=== PATIENT | female | born 1955 | race Two or more races ===

== ENCOUNTER 2021-12-21 16:59 | Emergency (ER) | payer OTHER ==
[2021-12-21 17:12] VITALS: TEMP 98.4
--- NOTE | 2021-12-21 18:43 | ED ---
Wound/Laceration HPI - General Chief Complaint: Wound/Laceration Stated Complaint: Leg Pain/Cellulitus Time Seen by Provider: 12/21/21 18:31 Source: patient, RN notes reviewed Mode of arrival: wheelchair - History of Present Illness Initial Comments: This is a pleasant 66-year-old female with history of hypertension, hyperlipidemia and chronic venous insufficiency. She presents today with worsening wound to the medial aspect of her left foot and ankle. She has been seeing wound care and having frequent and consistent dressing changes. However she states that she was sent down here because the balloon seems to be worse. 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 Patient denied any other immunosuppression. Nonsmoker. Patient is complaining of some pain to the area which is increased from usual. Patient states it seems to be worse when she is on her feet. Patient states that wound care told her she should be off of her feet for a few days. No headache, no fever or chills, no changes in vision or hearing, no sore throat or difficulty with speech, no neck pain, no chest pain or shortness of breath, no abdominal pain, no nausea or vomiting, no changes in urination or bowel movements, no numbness or tingling, no skin rashes or lesions. - Related Data Home Medications Medication Instructions Recorded Confirmed Acetaminophen [Tylenol] 1,000 mg PO Q4-6H PRN 12/21/21 12/21/21 Ascorbic Acid [Vitamin C] 500 mg PO DAILY 12/21/21 12/21/21 Atorvastatin [Lipitor] 20 mg PO HS 12/21/21 12/21/21 Cholecalciferol [Vitamin D3 (25 25 mcg PO DAILY 12/21/21 12/21/21 Mcg = 1000 Iu)] Ibuprofen [Motrin Ib] 200 mg PO Q4-6H PRN 12/21/21 12/21/21 Multivit-Min/Iron/Folic/Lutein 1 tab PO DAILY 12/21/21 12/21/21 [Centrum Silver Women Tablet] amLODIPine [Norvasc] 10 mg PO HS 12/21/21 12/21/21 diphenhydrAMINE [Benadryl] 25 mg PO DAILY 12/21/21 12/21/21 diphenhydrAMINE [Benadryl] 50 mg PO HS 12/21/21 12/21/21 lisinopriL 40 mg PO HS 12/21/21 12/21/21 Previous Rx's Medication Instructions Recorded Doxycycline Monohydrate [Monodox] 100 mg PO Q12HR #14 cap 12/21/21 Allergies Allergy/AdvReac Type Severity Reaction Status Date / Time Penicillins Allergy Rash/Hives Verified 12/21/21 19:37 and Swelling all over body Review of Systems ROS Statement: Those systems with pertinent positive or pertinent negative responses have been documented in the HPI. ROS Other: All systems not noted in ROS Statement are negative. Past Medical History Past Medical History: Hyperlipidemia, Hypertension History of Any Multi-Drug Resistant Organisms: None Reported Past Psychological History: No Psychological Hx Reported Smoking Status: Never smoker Past Alcohol Use History: None Reported Past Drug Use History: None Reported General Exam - General Exam Comments Initial Comments: Healthy-appearing 66-year-old female in no significant distress. Does not appear to be ill or toxic. General appearance: alert, in no apparent distress Head exam: Present: atraumatic, normocephalic, normal inspection Eye exam: Present: normal appearance, PERRL, EOMI. Absent: scleral icterus, conjunctival injection, periorbital swelling ENT exam: Present: normal exam, mucous membranes moist. Absent: TM's normal bilaterally Neck exam: Present: normal inspection. Absent: tenderness, meningismus, lymphadenopathy Respiratory exam: Present: normal lung sounds bilaterally. Absent: respiratory distress, wheezes, rales, rhonchi, stridor Cardiovascular Exam: Present: regular rate, normal rhythm, normal heart sounds. Absent: systolic murmur, diastolic murmur, rubs, gallop, clicks GI/Abdominal exam: Present: soft, normal bowel sounds. Absent: distended, tenderness, guarding, rebound, rigid Extremities exam: Present: full ROM, normal capillary refill, other (Patient has wound to the medial aspect of the left ankle consistent with venous stasis dermatitis. There is minimal erythema to the wound edge. No evidence of purulent drainage. Pedal pulses are 2+ out of 4.). Absent: normal inspection (The refill less than 2 seconds. Negative Homans sign, no significant edema), tenderness, pedal edema, joint swelling, calf tenderness Back exam: Present: normal inspection Neurological exam: Present: alert, oriented X3, CN II-XII intact Psychiatric exam: Present: normal affect, normal mood Skin exam: Present: warm, dry, rash Course Vital Signs 12/21/21 12/21/21 17:08 19:02 Temperature 98.4 F Pulse Rate 82 77 Respiratory 16 20 Rate Blood Pressure 175/85 176/88 O2 Sat by Pulse 96 99 Oximetry - Reevaluation(s) Reevaluation #1: 12/21/21 20:26 Medical record is reviewed Patient stable, patient blood pressure noted to be elevated. However, patient is asymptomatic regarding this. Patient is informed of results and questions answered Patient in no distress Procedures - Laceration Laceration #1 Indication: laceration Site: upper extremity Size (cm): 2 (Left index finger) Description: irregular (Irregular, stellate, devitalized tissue) Depth: simple, single layer Anesthetic Used: lidocaine 1% (Digital block) Anesthesia Technique: nerve block Amount (mls): 2 Pre-repair: wound explored, irrigated extensively, deep structures intact, extensive debridement (Debridement 1 x 1 cm with sterile forceps and scissors) Type of Sutures: nylon Size of Sutures: 4-0 Number of Sutures: 2 Technique: simple, interrupted Patient Tolerated Procedure: well, no complications Laceration #2 Consent Obtained: verbal consent Indication: laceration Site: upper extremity (Left middle finger) Size (cm): 3 Description: irregular Depth: simple, single layer Anesthetic Used: lidocaine 1% (Digital block) Anesthesia Technique: nerve block Amount (mls): 2 Pre-repair: wound explored, extensive debridement (Renal 1 x 1 cm sterile forceps and scissors) Type of Sutures: nylon Size of Sutures: 4-0 Number of Sutures: 2 Technique: simple, interrupted Patient Tolerated Procedure: well, no complications Laceration #3 Consent Obtained: verbal consent Indication: laceration Site: upper extremity (Left ring finger) Size (cm): 2 Description: irregular Depth: simple, single layer Anesthetic Used: lidocaine 1% Anesthesia Technique: nerve block (Digital block) Amount (mls): 2 Type of Sutures: nylon Size of Sutures: 4-0 Number of Sutures: 2 Technique: simple, interrupted Patient Tolerated Procedure: well, no complications Medical Decision Making - Medical Decision Making Patient presents with symptomology consistent with worsening venous stasis dermatitis involving the left ankle. Patient also has a history of a wound to the right ankle which is not as bad. Patient looks well otherwise. We'll order baseline laboratory work, x-ray, CRP, and sedimentation rate. Case discussed with on-call orthopedics. Patient counseled on wound care. Prophylactic antibiotics given. Side effects of Tylenol with Codeine and cephalexin given. Patient was told to return to the ER for any signs or symptoms worsen. Told to return immediately if any other problems arise. All questions answered. Treatment plan discussed. Patient in agreement Every effort has been made to ensure accuracy of this dictation. However, due to the limitations of electronic medical records and dictation devices, errors in charting still occur. The case was discussed in detail with ED attending physician. Presentation, findings, treatment plan discussed in detail. - Lab Data Result diagrams: 12/21/21 18:51 12/21/21 18:51 Lab Results 12/21/21 12/21/21 Range/Units 18:51 18:51 WBC 8.6 (3.8-10.6) k/uL RBC 3.80 (3.80-5.40) m/uL Hgb 12.2 (11.4-16.0) gm/dL Hct 37.1 (34.0-46.0) % MCV 97.8 (80.0-100.0) fL MCH 32.2 (25.0-35.0) pg MCHC 32.9 (31.0-37.0) g/dL RDW 13.5 (11.5-15.5) % Plt Count 286 (150-450) k/uL MPV 7.8 Neutrophils % 84 % Lymphocytes % 9 % Monocytes % 3 % Eosinophils % 2 % Basophils % 0 % Neutrophils # 7.2 (1.3-7.7) k/uL Lymphocytes # 0.7 L (1.0-4.8) k/uL Monocytes # 0.3 (0-1.0) k/uL Eosinophils # 0.2 (0-0.7) k/uL Basophils # 0.0 (0-0.2) k/uL ESR 36 H (0-20) mm/hr Sodium 139 (137-145) mmol/L Potassium 4.2 (3.5-5.1) mmol/L Chloride 103 (98-107) mmol/L Carbon Dioxide 25 (22-30) mmol/L Anion Gap 11 mmol/L BUN 24 H (7-17) mg/dL Creatinine 0.80 (0.52-1.04) mg/dL Est GFR (CKD-EPI)AfAm 89 (>60 ml/min/1.73 sqM) Est GFR (CKD-EPI)NonAf 77 (>60 ml/min/1.73 sqM) Glucose 115 H (74-99) mg/dL Calcium 9.2 (8.4-10.2) mg/dL Total Bilirubin 0.6 (0.2-1.3) mg/dL AST 25 (14-36) U/L ALT 20 (4-34) U/L Alkaline Phosphatase 77 (38-126) U/L C-Reactive Protein 0.7 (<1.0) mg/dL Total Protein 8.6 H (6.3-8.2) g/dL Albumin 4.8 (3.5-5.0) g/dL - Radiology Data Radiology results: report reviewed, image reviewed (No acute changes as read by me) Disposition Clinical Impression: Venous stasis dermatitis of left lower extremity, Hypertension, poor control Narrative: Possible early secondary cellulitis Disposition: HOME SELF-CARE Condition: Good Instructions (If sedation given, give patient instructions): Stasis Dermatitis (ED), Hypertension (ED) Additional Instructions: Elevate foot as much as possible. Wound care as directed by [facility] Take antibiotics as directed until recheck. Follow-up with your regular physician as directed. Return to the ER immediately if any symptoms worsen, new symptoms arise, or any other problems develop. Call your psychological operations specialist in the morning. Make an appointment with the regular physician regarding her blood pressure. Prescriptions: Doxycycline Monohydrate [Monodox] 100 mg PO Q12HR #14 cap Is patient prescribed a controlled substance at d/c from ED?: No Referrals: Zi Rojo MD [Primary Care Provider] - 1-2 days Time of Disposition: 20:25
[2021-12-21 18:59] LABS: Basophils % (A) 0 %; Eosinophils # (A) 0.2 k/uL (0-0.7); Eosinophils % (A) 2 %; HCT 37.1 % (34.0-46.0); HGB 12.2 gm/dL (11.4-16.0); Lymphocytes # (A) 0.7 k/uL (1.0-4.8); Lymphocytes % (A) 9 %; MCH 32.2 pg (25.0-35.0); MCHC 32.9 g/dL (31.0-37.0); MCV 97.8 fL (80.0-100.0); Mean Platelet Volume 7.8; Monocytes # (A) 0.3 k/uL (0-1.0); Monocytes % (A) 3 %; Neutrophils # (A) 7.2 k/uL (1.3-7.7); Neutrophils % (A) 84 %; Platelet Count 286 k/uL (150-450); RDW 13.5 % (11.5-15.5); WBC 8.6 k/uL (3.8-10.6)
[2021-12-21 19:05] VITALS: BP 176/88; PULSE 77; RESP 20
--- NOTE | 2021-12-21 19:07 | XR ---
EXAMINATION TYPE: XR ankle complete LT DATE OF EXAM: 12/21/2021 6:59 PM INDICATION: Patient age:Female; 66 years old; Reason for study: Left ankle wound; COMPARISON: None TECHNIQUE: The left ankle is imaged in AP lateral and oblique projections. FINDINGS: There is no evidence of acute osseous pathology. The joint spaces are well-preserved without evidenc e of subluxation or dislocation. Kager's fat pad is intact. No radiopaque foreign bodies are identifi ed. Calcaneal plantar spurring is present. No radiographic evidence for wound. IMPRESSION: 1. No evidence of acute fracture. 2. No radiographic evidence for ankle wound.
[2021-12-21] MEDS ORDERED: BACITRACIN OINT 1 EACH PACKET TOPICAL ONE (19:16)
[2021-12-21] MEDS ORDERED: CEPHALEXIN 500MG STARTER PACK 4 CAP BTL PO STA (19:17)
[2021-12-21] MEDS ORDERED: ACET/COD 300 MG/30 MG STARTER PACK 6 TAB BTL PO STA (19:18)
[2021-12-21 19:21] LABS: Albumin 4.8 g/dL (3.5-5.0); C Reactive Protein 0.7 mg/dL (<1.0); Calcium 9.2 mg/dL (8.4-10.2); Potassium 4.2 mmol/L (3.5-5.1); Total Bilirubin 0.6 mg/dL (0.2-1.3); Total Protein 8.6 g/dL (6.3-8.2)
[2021-12-21 19:48] LABS: Erythrocyte Sedimentation Rate 36 mm/hr (0-20)
[2021-12-21] MEDS ORDERED: DOXYCYCLINE 100 MG CAP PO STA (20:24)
== END 2021-12-21 20:37 | disposition home or self-care (01) ==
LOC: EC 16:59
DX: I87.332 Chronic venous hypertension (idiopathic) with ulcer and inflammation of left lower extremity (principal); I10 Essential (primary) hypertension; Z88.0 Allergy status to penicillin
CPT/HCPCS: 12004; 36415; 80053; 85025; 85652; 86140; 99283